=== PATIENT | female | born 1970 | race African-American/Black ===

== ENCOUNTER 2020-01-16 18:56 | Emergency (ER) | payer SELFPAY ==
[~2020-01-16] VITALS: Ht 157.5 cm; Wt 90.7 kg
[2020-01-16 19:23] VITALS: BP 158/98
[2020-01-16] MEDS ORDERED: KETOROLAC TROMETH 60MG/2ML VIAL IM ONE (21:00)
[2020-01-16] MEDS ORDERED: ACETAMINOPHEN 500 MG TAB PO ONE (21:45)
== END 2020-01-17 00:03 | disposition home or self-care (01) ==
LOC: ER 18:56
DX: G43.909 Migraine, unspecified, not intractable, without status migrainosus (principal); M26.622 Arthralgia of left temporomandibular joint
CPT/HCPCS: 70450; 96372; 99284; J1885